=== PATIENT | female | born 1980 | race Hispanic/Latino ===

== ENCOUNTER 2016-10-19 17:56 | Emergency (ER) | payer OTHER ==
--- NOTE | 2016-10-19 20:34 | EDDOCDS ---
Physician Documentation [facility] Name: Carlie Patrick Age: 36 yrs Sex: Female : 1980 Arrival Date: 10/19/2016 Time: 17:56 Bed TR7 Private MD: BLU CUNNINGHAM Disposition: 10/19/16 19:24 Discharged to Home/Self Care. Impression: Acute serous otitis media, right ear, Acute sinusitis. - Condition is Stable. - Discharge Instructions: Otitis Media, Adult, Jjbe-dz-Hayn, Sinusitis, Pttk-zm-Ufjn. - Prescriptions for Augmentin 875- 125 mg Oral Tablet - take 1 tablet by ORAL route every 12 hours for 10 days; 20 tablet. Ibuprofen 800 mg Oral Tablet - take 1 tablet by ORAL route every 8 hours As needed take with food; 30 tablet. Claritin 10 mg Oral Tablet - take 1 tablet by ORAL route once daily As needed; 30 tablet. Mucinex 600 mg - take 1 tablet by ORAL route 2 times per day; 30 tablet. - Medication Reconciliation, Local Pharmacy Hours form. - Follow up: BLU CUNNINGHAM; When: 1 - 2 days; Reason: Recheck today's complaints, Continuance of care. Follow up: Emergency Department; Reason: Worsening of conditions. - Problem is new. - Symptoms are unchanged. Historical: - Allergies: no known allergies; - Home Meds: 1. none - PMHx: none; - PSHx: reversal of tubal ligation; Tonsillectomy; Cesearean Section; Tubal ligation; - Social history: Smoking status: Patient states former smoker of tobacco. No barriers to communication noted, The patient speaks fluent Belarusian, Speaks appropriately for age. - Family history: Pertinent for recent sore throat, recent upper respiratory infection symptoms. - : The pt / caregiver states he / she is not on anticoagulants. Home medication list is obtained from the patient. - Exposure Risk Screening:: None identified. 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 2 in. (157.48 cm) (R); 19:33 BP 125 / 66; Pulse 76; Resp 18; Temp 98.6(O); Pulse Ox 99.0% on R/A; Pain 2/10; ttb 17:57 Body Mass Index 36.76 (91.17 kg, 157.48 cm) dd6 MDM: 19:05 Strep Screen, Nursing ordered. ef1 19:21 GATS (NEGATIVE STREP SCREEN) Ordered. EDMS 19:24 Financial registration complete. dm19 19:25 [facility] Payment Agreement was scanned into [employer] and attached to record. dm19 Signatures: Dispatcher MedHost EDMS Kim Otto, PALMA PAEnedina ef1 Ayesha Lopez RN RN ttb Sadaf HongRN RN ead Jessica Kwong dm19 The chart was reviewed and I authenticate all verbal orders and agree with the evaluation and treatment provided.Corrections: (The following items were deleted from the chart) 19:35 19:33 Family history Not pertinent, ttb ttb Attachments: 19:25 [facility] Payment Agreement dm19 MTDD
--- NOTE | 2016-10-19 20:34 | EDDOCDS ---
Nurse's Notes [facility] Name: Carlie Patrick Age: 36 yrs Sex: Female : 1980 Arrival Date: 10/19/2016 Time: 17:56 Bed TR7 Private MD: BLU CUNNINGHAM Diagnosis: Acute serous otitis media, right ear;Acute sinusitis Presentation: 10/19 17:59 Presenting complaint: Patient states: pt reports sore throat, right ear pain, and ead congestion x 2 days. Adult Sepsis Screening: The patient does not have new or worsening altered mentation. Patient's respiratory rate is less than 22. Systolic blood pressure is greater than 100. Patient has a qSOFA score of 0- Negative Sepsis Screen. Suicide/Homicide risk assessment- the patient denies having any suicidal and/or homicidal ideations and does not present with any other emotional, behavioral or mental health complaints. 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 Transition of care: patient was not received from another setting of care. 17:59 Acuity: VALENTÍN Level 4 ead 17:59 Method Of Arrival: Walkin/Carried/Asstd ead Triage Assessment: 18:00 General: Appears in no apparent distress, well nourished, well groomed, Behavior is ead appropriate for age, cooperative. Pain: Location: right ear Pain currently is 7 out of 10 on a pain scale. HIV screening NA for this visit Offered previously. Neurological: No deficits noted. EENT: Reports nasal congestion pain in right ear when swallowing. Respiratory: Airway is patent Respiratory effort is even, unlabored. Derm: Skin is pink, warm & dry. 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 none - PMHx: none; - PSHx: reversal of tubal ligation; Tonsillectomy; Cesearean Section; Tubal ligation; - Social history: Smoking status: Patient states former smoker of tobacco. No barriers to communication noted, The patient speaks fluent Albanian, Speaks appropriately for age. - Family history: Pertinent for recent sore throat, recent upper respiratory infection symptoms. - : The pt / caregiver states he / she is not on anticoagulants. Home medication list is obtained from the patient. - Exposure Risk Screening:: None identified. Screenin:33 Screening information is obtained from the patient. Fall risk: No risks identified. ttb Assistance ADL's: requires no assistance with activities of daily living. Abuse/DV Screen: The patient / caregiver reports he/she is: not in a situation that causes fear, pain or injury. Nutritional screening: No deficits noted. Advance Directives: Currently, there is no health care proxy. home support is adequate. Assessment: 19:33 Adult Sepsis Screening: The patient does not have new or worsening altered mentation. ttb Patient's respiratory rate is less than 22. Systolic blood pressure is greater than 100. Patient has a qSOFA score of 0- Negative Sepsis Screen. General: Appears in no apparent distress, well nourished, well groomed, Behavior is appropriate for age, cooperative, pleasant. Pain: Location: right ear. Neurological: Level of Consciousness is awake, alert. EENT: Reports nasal congestion nasal discharge pain in right ear. Cardiovascular: Chest pain is denied. Respiratory: Airway is patent Respiratory effort is even, unlabored, Reports cough that is. GI: Denies nausea, vomiting, pain. Derm: Skin is normal. Injury Description: No known injury. Vital Signs: 17:57 BP 115 / 67; Pulse 79; Resp 18 S; Temp 98.0; Pulse Ox 100% on R/A; Weight 91.17 kg (R); dd6 Height 5 ft. 2 in. (157.48 cm) (R); 19:33 BP 125 / 66; Pulse 76; Resp 18; Temp 98.6(O); Pulse Ox 99.0% on R/A; Pain 2/10; ttb 17:57 Body Mass Index 36.76 (91.17 kg, 157.48 cm) dd6 Vitals: 17:57 Log In Time: October 19, 2016 at 17:55. dd6 19:19 Strep Screen is obtained and tested: Negative, [facility]G [facility] and sent. ED Course: 17:57 Patient visited by Glenn Stevens PCA. dd6 17:57 José Miguel Noguera is Private Physician. dd6 17:57 BLU CUNNINGHAM is Private Physician. dd6 17:57 Patient moved to Waiting dd6 17:58 Patient moved to Pre RCE dd6 18:00 Triage Initiated ead 19:04 [facility] ef1 19:04 Patient moved to Triage 1 jmb 19:05 Luis F Clarke DO is Attending Physician. ef1 19:05 Patient visited by Kim Otto PA-C. ef1 19:24 BLU CUNNINGHAM is Referral Physician. ef1 19:25 [facility] Payment Agreement was scanned into [employer] and attached to record. dm19 19:26 GATS (NEGATIVE STREP SCREEN) Sent. jmb 19:32 Patient name changed from Carlie\S\\S\Darnell\S\ to Carlie\S\ \S\Darnell. EDMS 19:33 Patient moved to TR7 jmb 19:33 The patient / caregiver is instructed regarding the plan of care and ED course. Patient ttb has correct armband on for positive identification. 19:33 No IV's were initiated during this patient's visit. No procedures done that require ttb assistance. Strep culture sent to lab. Order Results: There are currently no results for this order. Outcome: 19:24 Discharge ordered by Provider. ef1 19:33 Discharge Assessment: Patient awake, alert and oriented x 3. No cognitive and/or ttb functional deficits noted. Patient verbalized understanding of disposition instructions. Patient awake and alert. patient administered narcotics - no. The following High Risk Discharge criteria are identified: None. Discharged to home ambulatory. Condition: good Condition: stable Condition: improved. Discharge instructions given to patient, Instructed on discharge instructions, follow up and referral plans. medication usage, Demonstrated understanding of instructions, medications, Pt was receptive of discharge instructions/ teaching. Prescriptions given X 4. No special radiology studies were completed. Property :Personal belongings accompany Pt. 19:42 Patient left the ED. ttb Signatures: Dispatcher MedHost EDMS Glenn Stevens, CHAIRMAN PRESIDENT AND CHIEF EXECUTIVE OFFICER CHAIRMAN PRESIDENT AND CHIEF EXECUTIVE OFFICER dd6 Kim Otto PA-C PA-C ef1 Ayesha Lopez RN RN Osman Oliveira RN RN jmb Dunaway, EmilyRN Jessica Wright dm19 Corrections: (The following items were deleted from the chart) 19:35 19:33 Family history Not pertinent, ttb ttb MTDD
--- NOTE | 2016-10-21 20:45 | EDDOCDS ---
Nurse's Notes [facility] Name: Carlie Patrick Age: 36 yrs Sex: Female : 1980 Arrival Date: 10/19/2016 Time: 17:56 Bed TR7 Private MD: BLU CUNNINGHAM Diagnosis: Acute serous otitis media, right ear;Acute sinusitis Presentation: 10/19 17:59 Presenting complaint: Patient states: pt reports sore throat, right ear pain, and ead congestion x 2 days. Adult Sepsis Screening: The patient does not have new or worsening altered mentation. Patient's respiratory rate is less than 22. Systolic blood pressure is greater than 100. Patient has a qSOFA score of 0- Negative Sepsis Screen. Suicide/Homicide risk assessment- the patient denies having any suicidal and/or homicidal ideations and does not present with any other emotional, behavioral or mental health complaints. 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 Transition of care: patient was not received from another setting of care. 17:59 Acuity: VALENTÍN Level 4 ead 17:59 Method Of Arrival: Walkin/Carried/Asstd ead Triage Assessment: 18:00 General: Appears in no apparent distress, well nourished, well groomed, Behavior is ead appropriate for age, cooperative. Pain: Location: right ear Pain currently is 7 out of 10 on a pain scale. HIV screening NA for this visit Offered previously. Neurological: No deficits noted. EENT: Reports nasal congestion pain in right ear when swallowing. Respiratory: Airway is patent Respiratory effort is even, unlabored. Derm: Skin is pink, warm & dry. 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 none - PMHx: none; - PSHx: reversal of tubal ligation; Tonsillectomy; Cesearean Section; Tubal ligation; - Social history: Smoking status: Patient states former smoker of tobacco. No barriers to communication noted, The patient speaks fluent Cymraes, Speaks appropriately for age. - Family history: Pertinent for recent sore throat, recent upper respiratory infection symptoms. - : The pt / caregiver states he / she is not on anticoagulants. Home medication list is obtained from the patient. - Exposure Risk Screening:: None identified. Screenin:33 Screening information is obtained from the patient. Fall risk: No risks identified. ttb Assistance ADL's: requires no assistance with activities of daily living. Abuse/DV Screen: The patient / caregiver reports he/she is: not in a situation that causes fear, pain or injury. Nutritional screening: No deficits noted. Advance Directives: Currently, there is no health care proxy. home support is adequate. Assessment: 19:33 Adult Sepsis Screening: The patient does not have new or worsening altered mentation. ttb Patient's respiratory rate is less than 22. Systolic blood pressure is greater than 100. Patient has a qSOFA score of 0- Negative Sepsis Screen. General: Appears in no apparent distress, well nourished, well groomed, Behavior is appropriate for age, cooperative, pleasant. Pain: Location: right ear. Neurological: Level of Consciousness is awake, alert. EENT: Reports nasal congestion nasal discharge pain in right ear. Cardiovascular: Chest pain is denied. Respiratory: Airway is patent Respiratory effort is even, unlabored, Reports cough that is. GI: Denies nausea, vomiting, pain. Derm: Skin is normal. Injury Description: No known injury. Vital Signs: 17:57 BP 115 / 67; Pulse 79; Resp 18 S; Temp 98.0; Pulse Ox 100% on R/A; Weight 91.17 kg (R); dd6 Height 5 ft. 2 in. (157.48 cm) (R); 19:33 BP 125 / 66; Pulse 76; Resp 18; Temp 98.6(O); Pulse Ox 99.0% on R/A; Pain 2/10; ttb 17:57 Body Mass Index 36.76 (91.17 kg, 157.48 cm) dd6 Vitals: 17:57 Log In Time: October 19, 2016 at 17:55. dd6 19:19 Strep Screen is obtained and tested: Negative, [facility]NEG [facility] and sent. ED Course: 17:57 Patient visited by Glenn Stevens PCA. dd6 17:57 José Miguel Noguera is Private Physician. dd6 17:57 BLU CUNNINGHAM is Private Physician. dd6 17:57 Patient moved to Waiting dd6 17:58 Patient moved to Pre RCE dd6 18:00 Triage Initiated ead 19:04 Kim [facility] ef1 19:04 Patient moved to Triage 1 jmb 19:05 Luis F Clarke DO is Attending Physician. ef1 19:05 Patient visited by Kim Otto PA-C. ef1 19:24 BLU CUNNINGHAM is Referral Physician. ef1 19:25 [facility] Payment Agreement was scanned into [employer] and attached to record. dm19 19:26 GATS (NEGATIVE STREP SCREEN) Sent. jmb 19:32 Patient name changed from Carlie\S\\S\Darnell\S\ to Carlie\S\ \S\Darnell. EDMS 19:33 Patient moved to TR7 jmb 19:33 The patient / caregiver is instructed regarding the plan of care and ED course. Patient ttb has correct armband on for positive identification. 19:33 No IV's were initiated during this patient's visit. No procedures done that require ttb assistance. Strep culture sent to lab. 10/21 08:47 T-Sheet-- Draft Copy was scanned into [employer] and attached to record. gb Order Results: Lab Order: GATS (NEGATIVE STREP SCREEN); SPEC'M 10/19/16 17:56 Test: GATS CULTURE (NEG STREP SCR); Value: GATS RESULT NEGATIVE FOR STREP PYOGENES (GROUP A); Status: F Outcome: 10/19 19:24 Discharge ordered by Provider. ef1 19:33 Discharge Assessment: Patient awake, alert and oriented x 3. No cognitive and/or ttb functional deficits noted. Patient verbalized understanding of disposition instructions. Patient awake and alert. patient administered narcotics - no. The following High Risk Discharge criteria are identified: None. Discharged to home ambulatory. Condition: good Condition: stable Condition: improved. Discharge instructions given to patient, Instructed on discharge instructions, follow up and referral plans. medication usage, Demonstrated understanding of instructions, medications, Pt was receptive of discharge instructions/ teaching. Prescriptions given X 4. No special radiology studies were completed. Property :Personal belongings accompany Pt. 19:42 Patient left the ED. ttb Signatures: Dispatcher [employer] EDAL Arabella Eugene, Reg Reg gb Glenn Stevens, CERTIFIED LACTATION COUNSELOR CERTIFIED LACTATION COUNSELOR dd6 Kim Otto PA-C PA-C ef1 Ayesha Lopez RN RN Osman OliveiraRN RN Sadaf ClarkRN RN Jessica Aguilar dm19 Corrections: (The following items were deleted from the chart) 19:35 19:33 Family history Not pertinent, geo guardado Chart Complete MTDD
--- NOTE | 2016-10-21 20:45 | EDDOCDS ---
Physician Documentation [facility] Name: Carlie Patrick Age: 36 yrs Sex: Female : 1980 Arrival Date: 10/19/2016 Time: 17:56 Bed TR7 Private MD: BLU CUNNINGHAM Disposition: 10/19/16 19:24 Discharged to Home/Self Care. Impression: Acute serous otitis media, right ear, Acute sinusitis. - Condition is Stable. - Discharge Instructions: Otitis Media, Adult, Nkrp-eg-Nmsw, Sinusitis, Gtqr-ct-Hrfo. - Prescriptions for Augmentin 875- 125 mg Oral Tablet - take 1 tablet by ORAL route every 12 hours for 10 days; 20 tablet. Ibuprofen 800 mg Oral Tablet - take 1 tablet by ORAL route every 8 hours As needed take with food; 30 tablet. Claritin 10 mg Oral Tablet - take 1 tablet by ORAL route once daily As needed; 30 tablet. Mucinex 600 mg - take 1 tablet by ORAL route 2 times per day; 30 tablet. - Medication Reconciliation, Local Pharmacy Hours form. - Follow up: BLU CUNNINGHAM; When: 1 - 2 days; Reason: Recheck today's complaints, Continuance of care. Follow up: Emergency Department; Reason: Worsening of conditions. - Problem is new. - Symptoms are unchanged. Historical: - Allergies: no known allergies; - Home Meds: 1. none - PMHx: none; - PSHx: reversal of tubal ligation; Tonsillectomy; Cesearean Section; Tubal ligation; - Social history: Smoking status: Patient states former smoker of tobacco. No barriers to communication noted, The patient speaks fluent Slovak, Speaks appropriately for age. - Family history: Pertinent for recent sore throat, recent upper respiratory infection symptoms. - : The pt / caregiver states he / she is not on anticoagulants. Home medication list is obtained from the patient. - Exposure Risk Screening:: None identified. 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 2 in. (157.48 cm) (R); 19:33 BP 125 / 66; Pulse 76; Resp 18; Temp 98.6(O); Pulse Ox 99.0% on R/A; Pain 2/10; ttb 17:57 Body Mass Index 36.76 (91.17 kg, 157.48 cm) dd6 MDM: 19:05 Strep Screen, Nursing ordered. ef1 19:21 GATS (NEGATIVE STREP SCREEN) Ordered. EDMS 19:24 Financial registration complete. dm19 19:25 [facility] Payment Agreement was scanned into [employer] and attached to record. 10/21 08:47 T-Sheet-- Draft Copy was scanned into [email or web address] and attached to record. gb Signatures: Dispatcher MedHost EDMS Arabella Eugene, Reg Reg gb Kim Otto, PALMA WALDROP ef1 Ayesha Lopez, RN RN ttb Sadaf HongRN RN ead Jessica Kwong dm19 The chart was reviewed and I authenticate all verbal orders and agree with the evaluation and treatment provided.Corrections: (The following items were deleted from the chart) 10/19 19:35 19:33 Family history Not pertinent, ttb ttb Attachments: 19:25 [facility] Payment Agreement dm19 10/21 08:47 T-Sheet-- Draft Copy gb Chart Complete MTDD
--- NOTE | 2016-10-21 20:45 | EDDOCDS ---
Physician Documentation [facility] Name: Carlie Patrick Age: 36 yrs Sex: Female : 1980 Arrival Date: 10/19/2016 Time: 17:56 Bed TR7 Private MD: BLU CUNNINGHAM Disposition: 10/19/16 19:24 Discharged to Home/Self Care. Impression: Acute serous otitis media, right ear, Acute sinusitis. - Condition is Stable. - Discharge Instructions: Otitis Media, Adult, Pvte-ag-Roiw, Sinusitis, Jtue-li-Vstk. - Prescriptions for Augmentin 875- 125 mg Oral Tablet - take 1 tablet by ORAL route every 12 hours for 10 days; 20 tablet. Ibuprofen 800 mg Oral Tablet - take 1 tablet by ORAL route every 8 hours As needed take with food; 30 tablet. Claritin 10 mg Oral Tablet - take 1 tablet by ORAL route once daily As needed; 30 tablet. Mucinex 600 mg - take 1 tablet by ORAL route 2 times per day; 30 tablet. - Medication Reconciliation, Local Pharmacy Hours form. - Follow up: BLU CUNNINGHAM; When: 1 - 2 days; Reason: Recheck today's complaints, Continuance of care. Follow up: Emergency Department; Reason: Worsening of conditions. - Problem is new. - Symptoms are unchanged. Historical: - Allergies: no known allergies; - Home Meds: 1. none - PMHx: none; - PSHx: reversal of tubal ligation; Tonsillectomy; Cesearean Section; Tubal ligation; - Social history: Smoking status: Patient states former smoker of tobacco. No barriers to communication noted, The patient speaks fluent Amharic, Speaks appropriately for age. - Family history: Pertinent for recent sore throat, recent upper respiratory infection symptoms. - : The pt / caregiver states he / she is not on anticoagulants. Home medication list is obtained from the patient. - Exposure Risk Screening:: None identified. 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 2 in. (157.48 cm) (R); 19:33 BP 125 / 66; Pulse 76; Resp 18; Temp 98.6(O); Pulse Ox 99.0% on R/A; Pain 2/10; ttb 17:57 Body Mass Index 36.76 (91.17 kg, 157.48 cm) dd6 MDM: 19:05 Strep Screen, Nursing ordered. ef1 19:21 GATS (NEGATIVE STREP SCREEN) Ordered. EDMS 19:24 Financial registration complete. dm19 19:25 [facility] Payment Agreement was scanned into [employer] and attached to record. 10/21 08:47 T-Sheet-- Draft Copy was scanned into [employer] and attached to record. gb Signatures: Dispatcher [employer] EDMS Arabella Eugene, Reg Reg gb Kim Otto, PALMA WALDROP ef1 Ayesha Lopez, RN RN ttb Sadaf HongRN RN ead Jessica Kwong dm19 The chart was reviewed and I authenticate all verbal orders and agree with the evaluation and treatment provided.Corrections: (The following items were deleted from the chart) 10/19 19:35 19:33 Family history Not pertinent, ttb ttb Attachments: 19:25 [facility] Payment Agreement dm19 10/21 08:47 T-Sheet-- Draft Copy gb Chart Complete MTDD
== END 2016-10-19 19:42 | disposition home or self-care (01) ==
LOC: M ED 17:56
DX: H66.91 Otitis media, unspecified, right ear (principal); R51 Headache; R09.81 Nasal congestion; Z87.891 Personal history of nicotine dependence

== ENCOUNTER → 2017-09-03 | Outpatient (REF) | payer OTHER | LOC: M LAB REF 09:23 | PROVIDERS: ATTEND Physician Assistant | DX: R50.9 Fever, unspecified (principal); R52 Pain, unspecified ==

== ENCOUNTER 2017-10-30 17:46 | Emergency (ER) | payer OTHER | END 2017-10-30 20:43 | disposition home or self-care (01) | LOC: M ED 17:46 | DX: J06.9 Acute upper respiratory infection, unspecified (principal); B34.9 Viral infection, unspecified | CPT/HCPCS: 87804 ==

== ENCOUNTER 2017-11-03 21:37 | Emergency (ER) | payer OTHER ==
[2017-11-03] MEDS: KETOROLAC 30 MG/ML VIAL (J1885) IV (22:15)
[2017-11-03] MEDS: NS 500 ML IV (22:15)
[2017-11-03 22:35] LABS: BASO % 0.3 % (0.0-1.0); EOS # 0.2 10^3/uL (0.0-0.50); EOS % 1.6 % (0.0-3.0); HEMATOCRIT 34.5 % (36.0-47.0); HEMOGLOBIN 11.1 g/dl (12.0-16.0); IMMATURE GRANULOCYTE % 0.4 % (0-0); LYMPH % 29.7 % (24.0-44.0); MEAN CORPUSCULAR HEMOGLOBIN 25.5 pg (27.0-33.0); MEAN CORPUSCULAR HGB CONC 32.2 g/dl (32.0-36.5); MEAN CORPUSCULAR VOLUME 79.1 fl (80.0-96.0); MONO # 0.7 10^3/uL (0.0-0.8); MONO % 6.8 % (0.0-5.0); NEUTROPHILS # 6.2 10^3/uL (1.8-7.7); NEUTROPHILS % 61.2 % (36.0-66.0); PLATELET COUNT, AUTOMATED 289 10^3/uL (150-450); RED BLOOD COUNT 4.36 10^6/uL (4.00-5.40); RED CELL DISTRIBUTION WIDTH 13.9 % (11.5-14.5); WHITE BLOOD COUNT 10.1 10^3/uL (4.0-10.0)
[2017-11-03 22:45] LABS: INR 0.99; PROTHROMBIN TIME 13.2 SECONDS (12.4-14.5)
[2017-11-03 22:46] LABS: PARTIAL THROMBOPLASTIN TIME 35.3 SECONDS (26.8-37.9)
[2017-11-03 22:56] LABS: ANION GAP 6 MEQ/L (8-16); BLOOD UREA NITROGEN 8 MG/DL (7-18); CALCIUM LEVEL 8.8 MG/DL (8.5-10.1); CARBON DIOXIDE LEVEL 28 MEQ/L (21-32); CHLORIDE LEVEL 106 MEQ/L (98-107); CK-MB VALUE MASS 2.1 NG/ML (0.0-3.6); CPK CREATINE PHOSPHOKINASE 240 U/L (26-192); CREATININE FOR GFR 0.72 MG/DL (0.55-1.02); GLOMERULAR FILTRATION RATE > 60.0 (>60); GLUCOSE, FASTING 97 MG/DL (70-105); MB/CK RELATIVE INDEX 0.87 (< OR =4); POTASSIUM SERUM 3.8 MEQ/L (3.5-5.1); SODIUM LEVEL 140 MEQ/L (136-145); TROPONIN I < 0.02 NG/ML (< 0.10)
[2017-11-03] MEDS ORDERED: ISOVUE-370 76% 100ML VIAL (Q9967) As Ordered (23:16)
[2017-11-04 00:12] LABS: CONTROL LINE HCG INT CTR LINE PRESENT; HCG, SERUM QUALITATIVE NEGATIVE (NEGATIVE)
== END 2017-11-04 02:03 | disposition home or self-care (01) ==
LOC: M ED 11-04 02:03
DX: R07.1 Chest pain on breathing (principal); R07.89 Other chest pain
CPT/HCPCS: Q9967

== ENCOUNTER 2018-06-11 17:51 | Emergency (ER) | payer OTHER | END 2018-06-11 19:26 | disposition home or self-care (01) | LOC: M ED 17:51 | DX: M77.9 Enthesopathy, unspecified (principal); F17.200 Nicotine dependence, unspecified, uncomplicated | CPT/HCPCS: 73610 ==

== ENCOUNTER 2018-07-27 12:46 | Emergency (ER) | payer OTHER ==
[2018-07-27] MEDS: ACETAMINOPHEN TAB 650MG DOSE (2X325MG) PO (14:41)
== END 2018-07-27 14:42 | disposition home or self-care (01) ==
LOC: M ED 12:46
DX: J06.9 Acute upper respiratory infection, unspecified (principal); H61.22 Impacted cerumen, left ear; Z79.1 Long term (current) use of non-steroidal anti-inflammatories (NSAID)
CPT/HCPCS: 87880

== ENCOUNTER 2018-09-09 22:44 | Emergency (ER) | payer OTHER ==
[2018-09-09] MEDS: LIDOCAINE VISCOUS 2% SOLN 15ML UDC SSP (23:19)
[2018-09-09] MEDS: AUGMENTIN 875 MG TAB PO (23:19)
== END 2018-09-09 23:24 | disposition home or self-care (01) ==
LOC: M ED 22:44
DX: K04.7 Periapical abscess without sinus (principal)
CPT/HCPCS: 99282

== ENCOUNTER → 2018-10-11 | Outpatient (REF) | payer OTHER ==
[~2018-10-11] MED LIST: ACET500T15 PO; AMOX500C; AUGM875T28 PO; FLON1SPR; IBUP-1022 PO; IBUP200T45 PO; KETO10TAB PO; LIDO1SOL7 PO; MUCI600T37 PO; NAPR-49 PO; NORCOTAB PO; SUDA1TAB3 PO
[2018-10-11 20:19] LABS: INFLUENZA A AMPLIFICATION NEGATIVE (NEGATIVE); INFLUENZA B AMPLIFICATION NEGATIVE (NEGATIVE)
== END ==
LOC: M LAB REF 10:05
PROVIDERS: ATTEND Physician Assistant
DX: J11.1 Influenza due to unidentified influenza virus with other respiratory manifestations (principal)

== ENCOUNTER 2019-05-07 17:23 | Emergency (ER) | payer OTHER, SELFPAY ==
[~2019-05-07] VITALS: Ht 157.5 cm; Wt 84.1 kg
[~2019-05-07 17:23] MED LIST changes: +HYDR-3715 PO; -LIDO1SOL7 PO; +LIDO1SOL8 PO; -NAPR-49 PO; +NAPR-837 PO; -NORCOTAB PO
--- NOTE | 2019-05-07 18:18 | REP ---
Right ankle four views : There is no fracture or dislocation. Mineralization and joint spaces are normal. There are no calcifications or foreign bodies. There is a small calcaneal plantar spur. Impression: Negative right ankle No significant change from 06/11/2018 . Electronically Signed by Isaac Tran MD 05/07/2019 06:09 P
[2019-05-07 20:18] VITALS: BP 113/69
== END 2019-05-07 20:24 | disposition home or self-care (01) ==
LOC: M ED 17:23
DX: S93.401A Sprain of unspecified ligament of right ankle, initial encounter (principal); X50.1XXA Overexertion from prolonged static or awkward postures, initial encounter; Y92.098 Other place in other non-institutional residence as the place of occurrence of the external cause; Z72.0 Tobacco use; Z79.1 Long term (current) use of non-steroidal anti-inflammatories (NSAID)

== ENCOUNTER 2019-07-21 08:16 | Emergency (ER) | payer OTHER ==
[~2019-07-21] VITALS: Ht 157.5 cm; Wt 81.2 kg
[2019-07-21] MEDS ORDERED: IBUP1TAB7 PO (08:23)
[2019-07-21] MEDS ORDERED: ZANA4TAB PO (08:55)
[2019-07-21] MEDS ORDERED: PRED20TA PO (08:55)
[2019-07-21] MEDS ORDERED: predniSONE 20 MG TAB PO ONE (09:00)
--- NOTE | 2019-07-21 09:16 | REP ---
Thoracic spine three views: Comparison is a PA and lateral chest dated 09/24/2014. There is mild scoliosis convex right, unchanged. Vertebral body heights, interspacing alignment are normal and unchanged. The pedicles are unremarkable and unchanged. Impression: Mild scoliosis, otherwise negative thoracic spine. Electronically Signed by Isaac Tran MD 07/21/2019 09:07 A
--- NOTE | 2019-07-21 10:01 | REP ---
CT of the cervical spine for trauma: The skull base, C1 and C2 are unremarkable. Vertebral body heights, interspacing alignment are normal. The prevertebral soft tissues are normal. The facets are normally aligned. There are no posterior element fractures. Impression: There is no fracture or listhesis. Electronically Signed by Isaac Tran MD 07/21/2019 09:52 A
[2019-07-21 10:19] VITALS: BP 113/67
== END 2019-07-21 10:23 | disposition home or self-care (01) ==
LOC: M ED 08:16
DX: M54.2 Cervicalgia (principal); M54.6 Pain in thoracic spine; M41.9 Scoliosis, unspecified; F17.200 Nicotine dependence, unspecified, uncomplicated

== ENCOUNTER 2019-08-14 08:30 | Outpatient (RCR) | payer OTHER ==
[~2019-08-14 08:30] MED LIST changes: +IBUP1TAB7 PO; +PRED20TA PO; +ZANA4TAB PO
== END 2019-08-15 ==
LOC: M PT 08:30
PROVIDERS: ATTEND Physician Assistant
DX: M54.2 Cervicalgia (principal)

== ENCOUNTER 2019-08-29 14:15 | Outpatient (RCR) | payer OTHER | END 2019-09-14 | LOC: M PT 14:15 | PROVIDERS: ATTEND Physician Assistant | DX: Z51.89 Encounter for other specified aftercare (principal); M54.2 Cervicalgia ==

== ENCOUNTER 2019-10-02 08:30 | Outpatient (RCR) | payer OTHER | END 2019-10-15 | LOC: M PT 08:30 | PROVIDERS: ATTEND Physician Assistant | DX: M54.2 Cervicalgia (principal) ==

== ENCOUNTER → 2020-07-29 | Outpatient (REF) | payer OTHER ==
[~2020-07-29] MED LIST changes: -LIDO1SOL8 PO; +LIDO2SOL17 PO
== END ==
LOC: M LAB REF 20:00
PROVIDERS: ATTEND Physician Assistant
DX: J02.9 Acute pharyngitis, unspecified (principal)

== ENCOUNTER → 2021-08-03 | Outpatient (REF) ==
[~2021-08-03] MED LIST changes: -IBUP200T45 PO; +IBUP200T46 PO
== END ==
LOC: M EMP 08:27
PROVIDERS: ATTEND Family Medicine
DX: Z11.52 Encounter for screening for COVID-19 (principal)

== ENCOUNTER → 2021-10-04 | Outpatient (REF) | LOC: M EMP 10:00 | PROVIDERS: ATTEND Family Medicine | DX: Z11.52 Encounter for screening for COVID-19 (principal) ==

== ENCOUNTER → 2021-12-28 | Outpatient (REF) | LOC: M EMP 12:34 | PROVIDERS: ATTEND Family Medicine | DX: Z20.822 Contact with and (suspected) exposure to COVID-19 (principal) ==

== ENCOUNTER → 2022-02-03 | Outpatient (REF) | payer OTHER | LOC: M LAB REF 12:12 | PROVIDERS: ATTEND Physician Assistant | DX: J02.9 Acute pharyngitis, unspecified (principal); R05.9 Cough, unspecified ==

== ENCOUNTER → 2022-04-14 | Outpatient (REF) | payer OTHER | LOC: M LAB REF 12:36 | PROVIDERS: ATTEND Physician Assistant | DX: E50.9 Vitamin A deficiency, unspecified (principal); R05.9 Cough, unspecified ==

== ENCOUNTER → 2022-05-10 | Outpatient (REF) | LOC: M LABSMTC 11:41 | PROVIDERS: ATTEND Family Medicine | DX: Z11.52 Encounter for screening for COVID-19 (principal) ==

== ENCOUNTER → 2022-07-27 | Outpatient (REF) | payer OTHER | LOC: M LAB REF 16:05 | PROVIDERS: ATTEND Physician Assistant | DX: R05.9 Cough, unspecified (principal) ==

== ENCOUNTER → 2023-01-27 | Outpatient (REF) | payer OTHER ==
[~2023-01-27] MED LIST changes: +LIDO15SO PO; -LIDO2SOL17 PO
== END ==
LOC: M LAB REF 20:51
PROVIDERS: ATTEND Physician Assistant
DX: B34.9 Viral infection, unspecified (principal)

== ENCOUNTER → 2023-05-29 | Outpatient (REF) | LOC: M EMP 09:33 | PROVIDERS: ATTEND Family Medicine | DX: Z11.52 Encounter for screening for COVID-19 (principal) ==

== ENCOUNTER → 2023-11-07 | Outpatient (REF) | LOC: M EMP 09:28 | PROVIDERS: ATTEND Family Medicine | DX: Z53.9 Procedure and treatment not carried out, unspecified reason (principal) ==

== ENCOUNTER 2024-01-09 23:06 | Emergency (ER) | payer OTHER ==
[~2024-01-09 23:06] MED LIST changes: -LIDO15SO PO; +LIDO15SO8 PO
[2024-01-09] MEDS ORDERED: CEPH500C PO (23:18)
[2024-01-09] MEDS ORDERED: ELIQ5TAB PO (23:18)
[2024-01-09 23:55] LABS: INR 1.24; PROTHROMBIN TIME 15.3 SECONDS (12.5-14.5)
[2024-01-09] MEDS ORDERED: ISOVUE-370 76% 100ML VIAL As Ordered ONE (23:57)
[2024-01-10 00:09] LABS: BASO # 0.1 10^3/uL (0.0-0.2); BASO % 0.5 % (0.0-1.0); EOS # 0.3 10^3/uL (0.0-0.5); EOS % 2.9 % (0.0-3.0); HEMATOCRIT 36.5 % (36.0-47.0); HEMOGLOBIN 11.6 g/dl (12.0-15.5); LYMPH # 2.6 10^3/uL (1.5-5.0); LYMPH % 26.3 % (24.0-44.0); MEAN CORPUSCULAR HEMOGLOBIN 26.1 pg (27.0-33.0); MEAN CORPUSCULAR HGB CONC 31.8 g/dl (32.0-36.5); MEAN CORPUSCULAR VOLUME 82.2 fl (80.0-96.0); MONO # 0.9 10^3/uL (0.0-0.8); MONO % 9.3 % (2.0-8.0); NEUTROPHILS # 5.9 10^3/uL (1.5-8.5); NEUTROPHILS % 59.7 % (36.0-66.0); PLATELET COUNT, AUTOMATED 333 10^3/uL (150-450); RED BLOOD COUNT 4.44 10^6/uL (4.00-5.40); WHITE BLOOD COUNT 9.9 10^3/uL (4.0-10.0)
[2024-01-10 00:11] LABS: BLOOD UREA NITROGEN 16 MG/DL (9-23); CALCIUM LEVEL 9.2 MG/DL (8.5-10.1); CARBON DIOXIDE LEVEL 29 MMOL/L (20-31); CHLORIDE LEVEL 103 MMOL/L (98-107); CPK CREATINE PHOSPHOKINASE 166 U/L (34-145); CREATININE FOR GFR 0.75 MG/DL (0.55-1.30); GLOMERULAR FILTRATION RATE > 60.0 (>58); GLUCOSE, FASTING 92 MG/DL (60-100); SODIUM LEVEL 137 MMOL/L (136-145)
[2024-01-10 01:38] LABS: CK-MB VALUE MASS < 1.0 NG/ML (<3.6)
[2024-01-10 01:40] LABS: CPK CREATINE PHOSPHOKINASE 155 U/L (34-145); MB/CK RELATIVE INDEX 0.64 (< OR =4)
[2024-01-10] MEDS ORDERED: PRED20TA PO (02:11)
[2024-01-10 02:15] VITALS: BP 107/65; TEMP 98.7; O2SAT 98
[2024-01-10] MEDS: methylPREDNISolone 125MG 2ML VIAL IV ONE (02:15)
== END 2024-01-10 02:23 | disposition home or self-care (01) ==
LOC: M ED 23:06
DX: R07.89 Other chest pain (principal); R93.7 Abnormal findings on diagnostic imaging of other parts of musculoskeletal system; F17.200 Nicotine dependence, unspecified, uncomplicated; F10.10 Alcohol abuse, uncomplicated; Z86.718 Personal history of other venous thrombosis and embolism; Z79.01 Long term (current) use of anticoagulants; Z79.52 Long term (current) use of systemic steroids; Z79.899 Other long term (current) drug therapy
CPT/HCPCS: 71045; 71275; 80047; 80048; 82550; 82553; 84484; 84702; 85025; 85610; 87486; 87581; 87633; 87798; 93005; 93041; 94760; 96374; 99285; J2930; Q9967

== ENCOUNTER → 2024-01-12 | Outpatient (CLI) | payer OTHER ==
[~2024-01-12] MED LIST changes: +CEPH500C PO; +ELIQ5TAB PO; +ISOVUE-370 76% 100ML VIAL ONE
== END ==
LOC: M PLAIMG 08:07
PROVIDERS: ATTEND Nurse Practitioner Family
DX: R59.9 Enlarged lymph nodes, unspecified (principal); I87.2 Venous insufficiency (chronic) (peripheral)
CPT/HCPCS: 72194; Q9967

== ENCOUNTER → 2024-02-28 | Outpatient (CLI) | payer OTHER ==
[~2024-02-28] MED LIST changes: -ISOVUE-370 76% 100ML VIAL ONE; +LIDOCAINE 1% MDV 20ML VIAL As Ordered ONE
== END ==
LOC: M IRPRO 11:38
PROVIDERS: ATTEND Nurse Practitioner Family
DX: R59.0 Localized enlarged lymph nodes (principal)

== ENCOUNTER → 2024-09-07 | Outpatient (REF) | payer OTHER ==
[~2024-09-07] MED LIST changes: -LIDOCAINE 1% MDV 20ML VIAL As Ordered ONE
== END ==
LOC: M LAB REF 17:43
PROVIDERS: ATTEND Physician Assistant Medical
DX: B34.9 Viral infection, unspecified (principal)

== ENCOUNTER → 2025-05-30 | Outpatient (REF) ==
[~2025-05-30] MED LIST changes: +CETI-24 PO; +IBUP80TA PO
== END ==
LOC: M EMP 08:53
PROVIDERS: ATTEND Family Medicine
DX: Z11.52 Encounter for screening for COVID-19 (principal)